=== PATIENT | female | born 1980 | race Caucasian/White ===

== ENCOUNTER 2024-04-29 09:59 | Emergency (ER) | payer BC, SELFPAY ==
[2024-04-29 10:01] VITALS: BP 128/87
--- NOTE | 2024-04-29 10:06 | ED.GENMED ---
History of Present Illness
General
Chief Complaint: Allergic Reaction
Time Seen by Provider: 04/29/24 10:06
History of Present Illness
History of Present Illness:
HPI: The patient presents with concerns for allergic reaction. The symptoms started approximately 12 hours ago and the symptoms worsened today. She does not want to take an EpiPen. She does not want to take Benadryl as she is driving but she did
take Zyrtec earlier today. 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
EXAM:
GENERAL: Well appearing but in mild distress, frequent cough noted
HEENT: Moist oral mucosa, widely patent posterior oropharynx
CARDIOVASCULAR: No murmurs, normal heart rate, regular rhythm, No chest wall tenderness
PULMONARY: No respiratory distress, breath sounds are clear and equal, no wheeze
ABDOMEN: Soft with no peritoneal signs, no tenderness
NEUROLOGIC: Excellent strength all extremities, no coordination deficits, no evidence of Bergeron's palsy on physical examination, there is no facial droop, eyelid function is symmetric bilaterally
PSYCHIATRIC: Appropriate mental status, normal insight and judgement
EXTREMITIES: Nontender, no edema, moves all extremities equally
SKIN: There is extensive urticaria over the anterior chest wall
TIME OF INITIAL ENCOUNTER: 10:10 AM
NUMBER AND COMPLEXITY OF PROBLEMS ADDRESSED AT THE ENCOUNTER
� Chronic conditions affecting care: Has had Bergeron's palsy in the past, asthma
� Acute Exacerbation and/or Progression of Chronic Illness: This is an acute problem
� Differential Diagnosis includes: Nonspecific allergic reaction, angioedema, airway compromise potential
AMOUNT AND/OR COMPLEXITY OF DATA TO BE REVIEWED AND ANALYZED
� I performed an independent evaluation of and my interpretation is:
EKG:
CT:
X-rays:
Laboratory Studies: White count 3.1, hemoglobin normal, platelets normal, chemistries normal
Other:
� Review of other/old records: The patient was here in 2020 with vaginal bleeding and at that time had a hemoglobin 11.7
� Clinical information was obtained by an independent historian: None needed
� Prescriptions/Medications Considered but not given:
� Further testing considered but not performed:
RISK OF COMPLICATIONS AND/OR MORBIDITY OR MORTALITY OF PATIENT MANAGEMENT
� Social determinants of health affecting care: Lives at home, works at a [employer]
� Discussion with other providers:
� Escalation of care including admission/observation vs risk of discharge considered: The patient declines epi and Benadryl. I explained the reasoning for using the epi but she again declines. She consents to IV steroids and
Pepcid. She did take Zyrtec earlier today. There is currently no evidence of Bergeron's palsy on physical examination. On reevaluation at 11 AM, she is no longer coughing and overall feels improved. Will give short course of steroids.
Past History
Past History
ED Past Medical History: Psychiatric (depression, ADHD, takes Zoloft, Dex)
ED Past Surgical History: Gynecological (D&C), Tonsilectomy and Other (breast augmentation)
Social History
Tobacco: Non-smoker
Alcohol: Occasional
Drug: None
Personal:
Living: with family
Employment: Employed
Phy Exam
Physical Exam
Physical Exam:
See HPI
Course
Orders/Labs/Results
Orders:
Orders
04/29/24 10:12
Famotidine [Pepcid] 20 mg IV NOW STA
MethylPREDNISolone PF [Solu-Medrol Pf] 125 mg IV NOW STA
04/29/24 10:24
Basic Metabolic Panel Urgent
Complete Blood Count/With Diff Urgent
Abnormal Lab Results
04/29/24
10:24
WBC 3.1 L 10^3/uL
(4.8-10.8)
RBC 3.76 L 10^6/uL
(4.20-5.40)
Hct 35.0 L %
(37.0-47.0)
MCH 33.5 H pg
(27.0-31.0)
Absolute Neuts (auto) 1.1 L 10^3/uL
(1.4-6.5)
Neutrophils % 35.3 L %
(42.2-75.2)
Monocytes % 10.7 H %
(1.7-9.3)
04/29/24 10:24
04/29/24 10:24
Vital Signs
Initial and Last Documented VS:
Initial Vital Signs
Temp Pulse Resp BP Pulse Ox
97.9 F 91 18 128/87 100
04/29/24 10:01 04/29/24 10:01 04/29/24 10:01 04/29/24 10:01 04/29/24 10:01
Last Documented Vital Signs
Temp Pulse Resp BP Pulse Ox
97.9 F 76 18 123/78 99
04/29/24 10:01 04/29/24 11:04 04/29/24 11:04 04/29/24 11:00 04/29/24 11:04
*Critical Care Note
Total Time (30-74mins, 75-104mins- exclusive of procedures): Not Applicable
ED Attending Note
-
Portions of this chart may have been created with voice recognition software.� Occasional wrong word or��sound alike� substitutions may have occurred due to the inherent limitations of voice recognition software.
Discharge Plan
Departure
Patient Disposition: Home (Routine Discharge)
Date of Disposition: 04/29/24
Time of Disposition: 11:05
Patient with high blood pressure during this ER visit?: Yes
Discharge Problem:
Allergic reaction
Instructions: Hives (DC)
Prescriptions:
New
prednisone 50 mg tablet
50 mg PO DAILY Qty: 4 0RF
No Action
ascorbic acid (vitamin C) [Vitamin C] 1,000 MG tablet
1,000 mg PO DAILY
cetirizine 10 MG tablet
10 mg PO DAILY
dextroamphetamine-amphetamine 10 MG tablet
25 mg PO DAILY
cholecalciferol (vitamin D3) [Vitamin D3] 1,000 UNIT capsule
1,000 unit PO DAILY
escitalopram oxalate 10 MG tablet
10 mg PO DAILY
ibuprofen 800 MG tablet
800 mg PO DAILY
Referrals:
Vicki Isaacs CRNP [Family Provider] -
Activity Restrictions/Additional Instructions:
Your white blood cell count is slightly low at 3.1. Your white blood cell count has been low in the past. I sent a prescription for steroids to your pharmacy. Continue Pepcid and Zyrtec. Consider following up with an personal lines advisor once her symptoms
resolved for allergy testing
Interventions
Interventions:
*Risk Screen - Suicide Last Done: 04/29/24 10:01
*General Assessment Last Done: 04/29/24 10:01
*Neglect/Abuse Screening Last Done: 04/29/24 10:01
*ED COVID-19 Vaccine History Last Done: 04/29/24 10:01
ED- Cardiac Assessment Last Done: 04/29/24 10:12
ED- Pulmonary Assessment Last Done: 04/29/24 10:12
ED-Skin Assessment Last Done: 04/29/24 10:12
Discharge Date and Time
Print Language: AFGHAN
[2024-04-29] MEDS: PEPCID 20 MG IV (10:16)
[2024-04-29] MEDS: SOLU-MEDROL PF 125 MG IV (10:16)
[2024-04-29 10:18] VITALS: BP 127/77
[2024-04-29 10:42] LABS: Blood Urea Nitrogen 12 mg/dl (7-17); Calcium 9.2 mg/dl (8.4-10.2); Carbon Dioxide 25 mmol/L (22-30); Chloride 105 mmol/L (98-107); Glucose 91 mg/dl (70-99); Potassium 4.2 mmol/L (3.5-5.1); Sodium 136 mmol/L (135-145); eGFR > 60.00
[2024-04-29 10:44] LABS: % Eosinophils 2.9 % (0-6); % Immature Granulocytes 0.3 % (0-0.5); % Lymphocytes 49.8 % (20.5-51.1); % Monocytes 10.7 % (1.7-9.3); % Neutrophils 35.3 % (42.2-75.2); Absolute Eosinophils 0.1 10^3/uL (0-0.7); Absolute Lymphocytes 1.5 10^3/uL (1.2-3.4); Absolute Monocytes 0.3 10^3/uL (0.1-0.6); Absolute Neutrophils 1.1 10^3/uL (1.4-6.5); Hemoglobin 12.6 g/dL (12.0-16.0); Mean Corpuscular Hgb 33.5 pg (27.0-31.0); Mean Corpuscular Volume 93.1 fL (81.0-99.0); Mean Platelet Volume 9.2 fL (7.4-10.4); Nucleated Red Blood Cells % 0 %; Platelet Count 232 10^3/uL (130-400); Red Blood Cell Count 3.76 10^6/uL (4.20-5.40); Red Cell Dist. Width 11.8 % (11.5-14.5); White Blood Cell Count 3.1 10^3/uL (4.8-10.8)
[2024-04-29 11:00] VITALS: BP 123/78
== END 2024-04-29 11:13 | disposition home or self-care (01) ==
LOC: EMR 09:59
PROVIDERS: EMERGENCY PHYSICIAN Emergency Medicine; FAMILY PHYSICIAN Nurse Practitioner Family
DX: T78.40XA Allergy, unspecified, initial encounter (principal); X58.XXXA Exposure to other specified factors, initial encounter; F32.A Depression, unspecified; F90.9 Attention-deficit hyperactivity disorder, unspecified type
CPT/HCPCS: 99283; 96374; 96375; 80048; 85025